=== PATIENT | female | born 1990 | race Caucasian/White ===

== ENCOUNTER 2017-10-22 08:51 | Emergency (ER) | payer MEDICAID ==
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
== END 2017-10-22 10:10 | disposition home or self-care (01) ==
LOC: ER 08:51
DX: J02.8 Acute pharyngitis due to other specified organisms (principal)
CPT/HCPCS: 99282; J8540

== ENCOUNTER 2019-01-05 20:49 | Emergency (ER) | payer MEDICAID ==
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
== END 2019-01-06 00:10 | disposition home or self-care (01) ==
LOC: ER 20:49
DX: R51 Headache (principal); V89.2XXA Person injured in unspecified motor-vehicle accident, traffic, initial encounter; Y93.89 Activity, other specified; Y92.488 Other paved roadways as the place of occurrence of the external cause; Y99.8 Other external cause status
CPT/HCPCS: 99284; 70450; 81025; Q0162